=== PATIENT | male | born 1970 | race Caucasian/White ===

== ENCOUNTER 2021-09-30 15:55 | Inpatient (IN) ==
[2021-09-30] MEDS ORDERED: Ipratropium/Albuterol Neb 3 ML IH ONE (16:22)
[2021-09-30 16:38] LABS: Basophils % 0.3 %; Eosinophils # 0.1 K/mcL (0.0-0.6); Eosinophils % 1.1 %; Hemoglobin 19.6 g/dL (12.9-16.9); Immature Granulocytes % 0.4 % (0-4); Lymphocytes # 2.7 K/mcL (0.6-4.6); Lymphocytes % 21.6 %; Mean Corpuscular HGB Conc 30.7 g/dL (31.6-35.5); Mean Corpuscular Hemoglobin 30.2 pg (28.0-33.3); Mean Corpuscular Volume 98.5 fL (83.0-100.0); Mean Platelet Volume 9.5 fL (9.4-12.4); Monocytes # 1.2 K/mcL (0.0-1.3); Monocytes % 9.3 %; Neutrophils # 8.4 K/mcL (1.6-8.9); Platelet Count 229 K/mcL (140-400); Red Blood Count 6.49 M/mcL (4.19-5.50); Red Cell Distribution Width 17.7 % (11.5-14.5); Segmented Neutrophils % 67.3 %; White Blood Count 12.4 K/mcL (4.3-11.1)
[2021-09-30 16:41] LABS: Hematocrit 63.9 % (37.5-50.1)
[2021-09-30 17:02] LABS: BUN/Creatinine Ratio 21 (6-26); Blood Urea Nitrogen 21 mg/dL (6-20); Calcium 8.6 mg/dL (8.6-10.3); Carbon Dioxide 36 mEq/L (23-29); Chloride 94 mEq/L (98-107); Glucose 87 mg/dL (70-105); Osmolality,Calculated 282 (280-300); Potassium 4.5 mEq/L (3.5-5.1); Sodium 135 mEq/L (136-145); Troponin I 0.04 ng/mL (< 0.04); eGFR For African Americans > 60 (> 60); eGFR For Non-African Americans > 60 (> 60)
[2021-09-30 17:39] LABS: Influenza A PCR Negative (Negative); Influenza B PCR Negative (Negative); Resp. Syncytial Virus PCR Negative (Negative)
[2021-09-30 17:42] LABS: SARS-CoV-2 by PCR (In House) Negative (Negative)
[2021-09-30] MEDS ORDERED: Isovue-370 500 ML BOTTLE IVP ONE (18:01)
[2021-09-30] MEDS ORDERED: Naloxone 0.4 MG/ML INJ IVP PRN (19:33)
[2021-09-30] MEDS ORDERED: Melatonin 3 MG TABLET PO PRN (19:33)
[2021-09-30] MEDS ORDERED: Aspirin 325 MG TABLET PO ONE (19:41)
[2021-09-30] MEDS ORDERED: Furosemide 40 MG/4 ML VIAL IVP ONE (20:11)
[2021-09-30] MEDS ORDERED: Perflutren Lipid Microsphere 1.3 ML in 0.9 % Sodium Chloride 8.7 ML IVP PRN (20:16)
[2021-09-30] MEDS: Ipratropium/Albuterol Neb 3 ML IH SCH (23:07)
[2021-09-30] MEDS: Budesonide/Formoterol 160/4.5 1 PUFF INH IH SCH (23:07)
[2021-10-01] MEDS: Ipratropium/Albuterol Neb 3 ML IH SCH ×6 (03:25→23:53)
[2021-10-01] MEDS: *HR* Heparin 5,000 UNIT/ML VIAL SQ SCH ×2 (05:55→15:54)
[2021-10-01 06:39] LABS: Hemoglobin 19.2 g/dL (12.9-16.9); Mean Corpuscular HGB Conc 30.3 g/dL (31.6-35.5); Mean Corpuscular Hemoglobin 30.2 pg (28.0-33.3); Mean Corpuscular Volume 99.5 fL (83.0-100.0); Platelet Count 198 K/mcL (140-400); Red Blood Count 6.36 M/mcL (4.19-5.50); White Blood Count 11.3 K/mcL (4.3-11.1)
[2021-10-01 06:40] LABS: Hematocrit 63.3 % (37.5-50.1)
[2021-10-01 07:42] LABS: Alanine Aminotransferase 83 Units/L (7-52); Albumin 3.4 g/dL (3.5-5.7); Albumin/Globulin Ratio 1.2 (1.1-2.2); Alkaline Phosphatase 52 Units/L (34-104); Aspartate Amino Transferase 35 Units/L (13-39); BUN/Creatinine Ratio 20 (6-26); Bilirubin,Direct 0.3 mg/dL (0.0-0.2); Bilirubin,Indirect 1.1 mg/dL (0.0-1.0); Bilirubin,Total 1.4 mg/dL (0.3-1.0); Blood Urea Nitrogen 21 mg/dL (6-20); Calcium 8.5 mg/dL (8.6-10.3); Carbon Dioxide 41 mEq/L (23-29); Chloride 94 mEq/L (98-107); Globulin 2.8 g/dL (2.4-3.5); Glucose 114 mg/dL (70-105); Osmolality,Calculated 294 (280-300); Potassium 4.3 mEq/L (3.5-5.1); Sodium 140 mEq/L (136-145); Total Protein 6.2 g/dL (6.4-8.9); eGFR For African Americans > 60 (> 60); eGFR For Non-African Americans > 60 (> 60)
[2021-10-01 08:07] LABS: INR 1.1; Prothrombin Time 12.6 Seconds (9.4-12.1)
[2021-10-01] MEDS: Aspirin 81 MG TAB.CHEW PO SCH (08:43)
[2021-10-01] MEDS: Budesonide/Formoterol 160/4.5 1 PUFF INH IH SCH ×2 (10:06→20:08)
[2021-10-01] MEDS: Azithromycin 250 MG TABLET PO SCH (13:21)
[2021-10-01 17:54] LABS: Hepatitis B Surface Antigen Nonreactive (Nonreactive)
[2021-10-01 18:23] LABS: Hepatitis B Core IgM Nonreactive (Nonreactive)
[2021-10-01 18:24] LABS: Hepatitis A Antibody IgM Nonreactive (Nonreactive); Hepatitis C Virus Antibody Nonreactive (Nonreactive)
[2021-10-01] MEDS: MethylPREDNISolone 40 MG/ML VIAL IVP SCH (21:46)
[2021-10-02] MEDS: MethylPREDNISolone 40 MG/ML VIAL IVP SCH ×3 (00:02→16:35)
[2021-10-02] MEDS: Ipratropium/Albuterol Neb 3 ML IH SCH ×6 (04:23→23:36)
[2021-10-02] MEDS: *HR* Heparin 5,000 UNIT/ML VIAL SQ SCH ×2 (05:09→16:36)
[2021-10-02] MEDS: Budesonide/Formoterol 160/4.5 1 PUFF INH IH SCH ×2 (07:30→20:23)
[2021-10-02] MEDS ORDERED: Furosemide 40 MG/4 ML VIAL IVP SCH (09:00)
[2021-10-02] MEDS: Azithromycin 250 MG TABLET PO SCH (09:01)
[2021-10-02] MEDS: Aspirin 81 MG TAB.CHEW PO SCH (09:01)
[2021-10-02] MEDS: Tiotropium 10 INH DOSE IH SCH (11:26)
[2021-10-02 11:35] LABS: Basophils % 0.2 %; Hemoglobin 20.6 g/dL (12.9-16.9); Immature Granulocytes % 0.5 % (0-4); Lymphocytes # 0.7 K/mcL (0.6-4.6); Lymphocytes % 8.1 %; Mean Corpuscular HGB Conc 32.1 g/dL (31.6-35.5); Mean Corpuscular Hemoglobin 30.9 pg (28.0-33.3); Mean Corpuscular Volume 96.1 fL (83.0-100.0); Mean Platelet Volume 10.3 fL (9.4-12.4); Monocytes # 0.2 K/mcL (0.0-1.3); Monocytes % 2.6 %; Neutrophils # 8.1 K/mcL (1.6-8.9); Platelet Count 261 K/mcL (140-400); Red Blood Count 6.67 M/mcL (4.19-5.50); Red Cell Distribution Width 17.3 % (11.5-14.5); Segmented Neutrophils % 88.6 %; White Blood Count 9.2 K/mcL (4.3-11.1)
[2021-10-02 11:36] LABS: Hematocrit 64.1 % (37.5-50.1)
[2021-10-02 11:50] LABS: Alanine Aminotransferase 63 Units/L (7-52); Albumin 3.4 g/dL (3.5-5.7); Albumin/Globulin Ratio 1.2 (1.1-2.2); Alkaline Phosphatase 49 Units/L (34-104); Aspartate Amino Transferase 28 Units/L (13-39); BUN/Creatinine Ratio 24 (6-26); Bilirubin,Total 1.5 mg/dL (0.3-1.0); Blood Urea Nitrogen 25 mg/dL (6-20); Calcium 8.4 mg/dL (8.6-10.3); Carbon Dioxide 40 mEq/L (23-29); Chloride 95 mEq/L (98-107); Globulin 2.8 g/dL (2.4-3.5); Glucose 144 mg/dL (70-105); Osmolality,Calculated 295 (280-300); Potassium 5.1 mEq/L (3.5-5.1); Sodium 139 mEq/L (136-145); Total Protein 6.2 g/dL (6.4-8.9); eGFR For African Americans > 60 (> 60); eGFR For Non-African Americans > 60 (> 60)
[2021-10-02] MEDS: Lisinopril-HCTZ 20-12.5mg TABLET PO SCH (12:33)
[2021-10-02] MEDS ORDERED: Furosemide 40 MG/4 ML VIAL IVP ONE (14:43)
[2021-10-02 17:00] LABS: VBG HCO3 42 mEq/L (21-27); VBG PCO2 73 mmHg (41-51); VBG PH 7.36 pH Units (7.32-7.42); VBG PO2 38 mmHg (25-50)
[2021-10-02 22:29] LABS: VBG HCO3 40 mEq/L (21-27); VBG PCO2 61 mmHg (41-51); VBG PH 7.42 pH Units (7.32-7.42); VBG PO2 131 mmHg (25-50)
[2021-10-03 01:41] LABS: Basophils % 0.2 %; Eosinophils % 0.1 %; Hemoglobin 19.2 g/dL (12.9-16.9); Immature Granulocytes % 0.5 % (0-4); Lymphocytes # 0.9 K/mcL (0.6-4.6); Lymphocytes % 7.1 %; Mean Corpuscular HGB Conc 30.8 g/dL (31.6-35.5); Mean Corpuscular Volume 97.7 fL (83.0-100.0); Mean Platelet Volume 9.5 fL (9.4-12.4); Monocytes # 0.8 K/mcL (0.0-1.3); Monocytes % 6.4 %; Neutrophils # 10.8 K/mcL (1.6-8.9); Platelet Count 216 K/mcL (140-400); Red Blood Count 6.39 M/mcL (4.19-5.50); Red Cell Distribution Width 16.4 % (11.5-14.5); Segmented Neutrophils % 85.7 %; White Blood Count 12.6 K/mcL (4.3-11.1)
[2021-10-03 01:44] LABS: Hematocrit 62.4 % (37.5-50.1)
[2021-10-03] MEDS: MethylPREDNISolone 40 MG/ML VIAL IVP SCH ×4 (02:02→23:37)
[2021-10-03 02:39] LABS: Alanine Aminotransferase 51 Units/L (7-52); Albumin 3.4 g/dL (3.5-5.7); Albumin/Globulin Ratio 1.1 (1.1-2.2); Alkaline Phosphatase 62 Units/L (34-104); Aspartate Amino Transferase 22 Units/L (13-39); BUN/Creatinine Ratio 26 (6-26); Blood Urea Nitrogen 28 mg/dL (6-20); Calcium 8.6 mg/dL (8.6-10.3); Carbon Dioxide 37 mEq/L (23-29); Chloride 92 mEq/L (98-107); Globulin 3.2 g/dL (2.4-3.5); Glucose 125 mg/dL (70-105); Osmolality,Calculated 291 (280-300); Potassium 4.3 mEq/L (3.5-5.1); Sodium 137 mEq/L (136-145); Total Protein 6.6 g/dL (6.4-8.9); eGFR For African Americans > 60 (> 60); eGFR For Non-African Americans > 60 (> 60)
[2021-10-03] MEDS: Ipratropium/Albuterol Neb 3 ML IH SCH ×6 (04:11→23:17)
[2021-10-03] MEDS: *HR* Heparin 5,000 UNIT/ML VIAL SQ SCH ×2 (05:39→16:54)
[2021-10-03] MEDS: Budesonide/Formoterol 160/4.5 1 PUFF INH IH SCH ×2 (07:34→19:33)
[2021-10-03] MEDS: Tiotropium 10 INH DOSE IH SCH (07:36)
[2021-10-03 08:36] LABS: VBG HCO3 38 mEq/L (21-27); VBG PCO2 63 mmHg (41-51); VBG PH 7.39 pH Units (7.32-7.42); VBG PO2 211 mmHg (25-50)
[2021-10-03] MEDS: Furosemide 40 MG/4 ML VIAL IVP SCH (10:19)
[2021-10-03] MEDS: Metoprolol XL (24 HR) Succ 25 MG TAB.ER.24H PO SCH (10:19)
[2021-10-03] MEDS: Aspirin 81 MG TAB.CHEW PO SCH (10:19)
[2021-10-03] MEDS: Azithromycin 250 MG TABLET PO SCH (10:19)
[2021-10-03] MEDS: Lisinopril-HCTZ 20-12.5mg TABLET PO SCH (10:27)
[2021-10-03 16:14] LABS: VBG HCO3 40 mEq/L (21-27); VBG PCO2 53 mmHg (41-51); VBG PH 7.48 pH Units (7.32-7.42); VBG PO2 80 mmHg (25-50)
[2021-10-04 01:28] LABS: Basophils % 0.1 %; Eosinophils % 0.1 %; Hemoglobin 19.8 g/dL (12.9-16.9); Immature Granulocytes % 0.6 % (0-4); Immature Platelets 3.9 % (1.1-6.1); Lymphocytes % 7.5 %; Mean Corpuscular HGB Conc 30.6 g/dL (31.6-35.5); Mean Corpuscular Volume 98.3 fL (83.0-100.0); Monocytes # 0.7 K/mcL (0.0-1.3); Monocytes % 5.6 %; Neutrophils # 11.5 K/mcL (1.6-8.9); Platelet Count 206 K/mcL (140-400); Red Blood Count 6.59 M/mcL (4.19-5.50); Red Cell Distribution Width 17.2 % (11.5-14.5); Segmented Neutrophils % 86.1 %; White Blood Count 13.3 K/mcL (4.3-11.1)
[2021-10-04 01:51] LABS: Hematocrit 64.8 % (37.5-50.1); Platelet Estimate Normal (Normal)
[2021-10-04] MEDS: Ipratropium/Albuterol Neb 3 ML IH SCH ×6 (03:25→23:57)
[2021-10-04 05:40] LABS: Alanine Aminotransferase 44 Units/L (7-52); Albumin 3.4 g/dL (3.5-5.7); Alkaline Phosphatase 54 Units/L (34-104); Aspartate Amino Transferase 36 Units/L (13-39); BUN/Creatinine Ratio 27 (6-26); Blood Urea Nitrogen 31 mg/dL (6-20); Calcium 8.8 mg/dL (8.6-10.3); Carbon Dioxide 41 mEq/L (23-29); Chloride 89 mEq/L (98-107); Globulin 3.3 g/dL (2.4-3.5); Glucose 137 mg/dL (70-105); Osmolality,Calculated 293 (280-300); Potassium 5.3 mEq/L (3.5-5.1); Sodium 137 mEq/L (136-145); Total Protein 6.7 g/dL (6.4-8.9); eGFR For African Americans > 60 (> 60); eGFR For Non-African Americans > 60 (> 60)
[2021-10-04] MEDS: *HR* Heparin 5,000 UNIT/ML VIAL SQ SCH ×2 (05:58→17:13)
[2021-10-04 06:33] LABS: VBG HCO3 38 mEq/L (21-27); VBG PCO2 60 mmHg (41-51); VBG PH 7.41 pH Units (7.32-7.42); VBG PO2 146 mmHg (25-50)
[2021-10-04] MEDS: Tiotropium 10 INH DOSE IH SCH (07:49)
[2021-10-04] MEDS: Budesonide/Formoterol 160/4.5 1 PUFF INH IH SCH ×2 (07:49→20:06)
[2021-10-04] MEDS: Aspirin 81 MG TAB.CHEW PO SCH (08:58)
[2021-10-04] MEDS: MethylPREDNISolone 40 MG/ML VIAL IVP SCH ×3 (08:58→22:22)
[2021-10-04] MEDS: Furosemide 40 MG/4 ML VIAL IVP SCH (08:59)
[2021-10-04] MEDS: Spironolactone 12.5 MG TABLET PO SCH (08:59)
[2021-10-04] MEDS: lisinopriL 20 MG TABLET PO SCH (08:59)
[2021-10-04] MEDS: Azithromycin 250 MG TABLET PO SCH (08:59)
[2021-10-04] MEDS: Metoprolol XL (24 HR) Succ 25 MG TAB.ER.24H PO SCH (08:59)
[2021-10-04 09:40] LABS: BUN/Creatinine Ratio 29 (6-26); Blood Urea Nitrogen 31 mg/dL (6-20); Calcium 8.9 mg/dL (8.6-10.3); Carbon Dioxide 39 mEq/L (23-29); Chloride 91 mEq/L (98-107); Glucose 144 mg/dL (70-105); Osmolality,Calculated 291 (280-300); Potassium 5.1 mEq/L (3.5-5.1); Sodium 136 mEq/L (136-145); eGFR For African Americans > 60 (> 60); eGFR For Non-African Americans > 60 (> 60)
[2021-10-04] MEDS ORDERED: *HR* Heparin 10,000 UNIT/10 ML VIAL ONE (14:58)
[2021-10-04] MEDS ORDERED: ISOVUE-370 200 ML INFUS..BTL ONE (14:58)
[2021-10-04] MEDS ORDERED: Nitroglycerin 1,000 MCG/5 ML VIAL IV ONE (14:58)
[2021-10-04] MEDS ORDERED: 0.9 % Sodium Chloride 2,000 ML ONE (14:58)
[2021-10-04] MEDS ORDERED: Heparin 1,000 UNITS/500 mL 500 ML ONE (14:58)
[2021-10-04] MEDS ORDERED: *HR* Midazolam HCl 2 MG/2 ML VIAL ONE (15:13)
[2021-10-04] MEDS ORDERED: *HR* FentaNYL (PF) 100 MCG/2 ML VIAL ONE (15:13)
[2021-10-05] MEDS: Ipratropium/Albuterol Neb 3 ML IH SCH ×3 (04:18→11:47)
[2021-10-05 05:21] LABS: Basophils % 0.3 %; Hemoglobin 20.6 g/dL (12.9-16.9); Immature Granulocytes % 0.4 % (0-4); Lymphocytes # 0.9 K/mcL (0.6-4.6); Lymphocytes % 7.7 %; Mean Corpuscular HGB Conc 31.8 g/dL (31.6-35.5); Mean Corpuscular Hemoglobin 30.7 pg (28.0-33.3); Mean Corpuscular Volume 96.6 fL (83.0-100.0); Mean Platelet Volume 9.6 fL (9.4-12.4); Monocytes # 0.3 K/mcL (0.0-1.3); Platelet Count 227 K/mcL (140-400); Red Blood Count 6.71 M/mcL (4.19-5.50); Red Cell Distribution Width 16.6 % (11.5-14.5); Segmented Neutrophils % 88.6 %; White Blood Count 11.3 K/mcL (4.3-11.1)
[2021-10-05 05:22] LABS: Hematocrit 64.8 % (37.5-50.1)
[2021-10-05] MEDS: *HR* Heparin 5,000 UNIT/ML VIAL SQ SCH (05:24)
[2021-10-05 05:41] LABS: Alanine Aminotransferase 44 Units/L (7-52); Albumin 3.4 g/dL (3.5-5.7); Albumin/Globulin Ratio 1.1 (1.1-2.2); Alkaline Phosphatase 53 Units/L (34-104); Aspartate Amino Transferase 22 Units/L (13-39); BUN/Creatinine Ratio 33 (6-26); Bilirubin,Total 1.5 mg/dL (0.3-1.0); Blood Urea Nitrogen 39 mg/dL (6-20); Calcium 8.9 mg/dL (8.6-10.3); Carbon Dioxide 39 mEq/L (23-29); Chloride 90 mEq/L (98-107); Globulin 3.2 g/dL (2.4-3.5); Glucose 150 mg/dL (70-105); Osmolality,Calculated 294 (280-300); Potassium 4.5 mEq/L (3.5-5.1); Sodium 136 mEq/L (136-145); Total Protein 6.6 g/dL (6.4-8.9); eGFR For African Americans > 60 (> 60); eGFR For Non-African Americans > 60 (> 60)
[2021-10-05] MEDS: Tiotropium 10 INH DOSE IH SCH (07:38)
[2021-10-05] MEDS: Budesonide/Formoterol 160/4.5 1 PUFF INH IH SCH (07:39)
[2021-10-05] MEDS: Furosemide 40 MG/4 ML VIAL IVP SCH (08:13)
[2021-10-05] MEDS: MethylPREDNISolone 40 MG/ML VIAL IVP SCH (08:13)
[2021-10-05] MEDS: Aspirin 81 MG TAB.CHEW PO SCH (08:14)
[2021-10-05] MEDS: Metoprolol XL (24 HR) Succ 25 MG TAB.ER.24H PO SCH (08:14)
[2021-10-05] MEDS: lisinopriL 20 MG TABLET PO SCH (08:14)
[2021-10-05] MEDS: Spironolactone 12.5 MG TABLET PO SCH (08:14)
[2021-10-05] MEDS: Azithromycin 250 MG TABLET PO SCH (08:15)
[2021-10-05] MEDS ORDERED: 0.9 % Sodium Chloride 2,000 ML ONE (10:16)
[2021-10-05] MEDS ORDERED: ISOVUE-370 200 ML INFUS..BTL ONE (10:16)
[2021-10-05] MEDS ORDERED: Nitroglycerin 1,000 MCG/5 ML VIAL IV ONE (10:16)
[2021-10-05] MEDS ORDERED: *HR* Heparin 10,000 UNIT/10 ML VIAL ONE (10:16)
[2021-10-05] MEDS ORDERED: Heparin 1,000 UNITS/500 mL 500 ML ONE (10:16)
[2021-10-05] MEDS ORDERED: *HR* Midazolam HCl 2 MG/2 ML VIAL ONE (11:02)
[2021-10-05] MEDS ORDERED: *HR* FentaNYL (PF) 100 MCG/2 ML VIAL ONE (11:02)
[2021-10-05 12:04] VITALS: TEMP 98.4
[2021-10-05 12:28] VITALS: O2SAT 90
[2021-10-05 13:05] VITALS: BP 110/74; PULSE 85
[2021-10-06] MEDS ORDERED: Furosemide 40 MG TABLET PO SCH (09:00)
== END 2021-10-05 15:46 | disposition home or self-care (01) | DRG 280 ==
LOC: 3BNU 15:55 → EMEROOARM 15:55 → 3BNU 20:16 → SUATTDRO 10-02 15:45
PROVIDERS: ADMIT Internal Medicine; ATTEND Registered Nurse